=== PATIENT | male | born 1995 | race Caucasian/White ===

== ENCOUNTER 2022-01-11 15:07 | Inpatient (IN) | payer MEDICAID, SELFPAY ==
[2022-01-11 15:10] VITALS: BP 132/83; PULSE 86; RESP 16; TEMP 36.6; O2SAT 98; BMI 21.7
--- NOTE | 2022-01-11 15:22 | W.ED.GENADLT ---
HPI - General Adult General: Chief complaint: Psychiatric Symptoms Stated complaint: Psych Eval Time Seen by Provider: 01/11/22 15:07 History of Present Illness: HPI: [26]yo patient w/ hx of depression presenting for SI with worsening depression. No active plan currently. On arrival, the patient is AAOx3 and cooperative with my evaluation. No focal complaints of chest pain, shortness of breath, palpitations, N/V, focal GI/ complaints. Currently denies HI. No complaints of hallucinations. Onset: acute on chronic Duration: ongoing Location: home Severity: severe Associated symptoms: Deny chest pain, dyspnea, nausea, rash, palpitations or vomiting Review of Systems Const: Denies: fever(s) or chills Eyes: Denies: change in vision ENMT: Denies: mouth pain Card: Denies: chest pain or palpitations Resp: Denies: dyspnea or non-productive cough GI: Denies: abdominal pain, nausea, vomiting or diarrhea : Denies: dysuria Musc: Denies: extremity pain Skin/Breast: Denies: rash or new lesions Neuro: Denies: weakness in extremities Psych: Reports: depression and suicidal ideation Naman/Lymph: Denies: easy bruising PFSH ED PFSH: Medical History Depression Social History Smoking and tobacco status: never smoked Alcohol intake: never Substance/Drug Use: never Physical Exam Const: COMMON NORMALS: alert HENMT: COMMON NORMALS: atraumatic HEAD & SCALP: atraumatic MOUTH: moist mucous membranes not abnormal Eye: COMMON NORMALS: EOMs intact bilaterally and conjunctivae normal CONJUNCTIVA: Yes conjunctivae normal Neck/C-Spine: COMMON NORMALS: full ROM and supple Resp: COMMON NORMALS: normal respiratory effort and clear to auscultation bilaterally AUSCULTATION: clear to auscultation bilaterally Cardio: COMMON NORMALS: regular rate RATE: regular rate GI: COMMON NORMALS: Soft to palpation and non-tender PALPATION: Yes Soft to palpation Extremity: COMMON NORMALS: full ROM Neuro: SENSORIUM/ORIENTATION: Yes alert MOTOR EXAM: No Abnormal motor strength present and Other motor observations present (no focal motor deficits) Psych: COMMON NORMALS: speech normal SPEECH: Yes normal speech MOOD & AFFECT: Yes depressed mood Course Vital Signs: Vital signs: Vital Signs Temperature 97.9 F 01/11/22 15:10 Pulse Rate 86 01/11/22 15:10 Respiratory Rate 16 01/11/22 15:10 Blood Pressure 132/83 01/11/22 15:10 Pulse Oximetry 98 01/11/22 15:10 Oxygen Delivery Me thod 01/11/22 15:10 MDM - General Adult Medical Decision Making [26]yo patient w/ hx of depression presenting for SI with worsening depression. HDS, exam within normal limit Thoughts are linear and organized, and the patient has no AH/VH, or HI. Clinically the patient displays no overt toxidrome; they are well appearing, with low suspicion for toxic ingestion given history and exam. Symptoms unlikely 2/2 anemia, hypothyroidism, infection, or ICH. Workup: CBC, CMP, Lipase, salicylate/tylenol, serum ethanol, UDS Lab findings: wnl, +marijuana/amphetamine in the urine [4:30pm] On reassessment, labs and workup wnl. Patient is hemodynamically stable with no acute medical complaints. Case discussed with psychiatric provider Dr. Logan at [facility] psych inpatient with recommendation for admission Disposition: Psych Lab Data : 01/11/22 15:25 01/11/22 15:25 Laboratory Results WBC 8.9 10^3/uL (4.0-10.0) 01/11/22 15:25 RBC 4.80 10^6/uL (4.1-5.3) 01/11/22 15:25 Hgb 14.6 g/dL (11.7-16.6) 01/11/22 15:25 Hct 44.7 % (42.0-52.0) 01/11/22 15:25 MCV 93.1 fl (80-94) 01/11/22 15:25 MCH 30.4 pg (28.0-34.0) 01/11/22 15:25 MCHC 32.7 g/dL (30.0-36.0) 01/11/22 15:25 RDW 12.6 % (12.1-15.1) 01/11/22 15:25 Plt Count 440 10^3/cmm (130-400) H 01/11/22 15:25 MPV 9.1 fL (7.4-10.4) 01/11/22 15:25 Neut % (Auto) 58.4 % 01/11/22 15:25 Lymph % (Auto) 29.9 % 01/11/22 15:25 Beauregard % (Auto) 6.5 % 01/11/22 15:25 Eos % (Auto) 4.1 % 01/11/22 15:25 Baso % (Auto) 0.9 % 01/11/22 15:25 Neut # (Auto) 5.18 10^3/uL (1.8-7.7) 01/11/22 15:25 Lymph # (Auto) 2.7 10^3/uL (0.8-4.8) 01/11/22 15:25 Beauregard # (Auto) 0.6 10^3/uL (0.2-0.9) 01/11/22 15:25 Eos # (Auto) 0.4 10^3/uL (0.0-0.8) 01/11/22 15:25 Baso # (Auto) 0.1 10^3/uL (0.0-0.1) 01/11/22 15:25 Nucleated RBC % (auto) 0 % 01/11/22 15:25 Nucleated RBCs # 0.0 /100WBC 01/11/22 15:25 Sodium 139 mmol/L (136-145) 01/11/22 15:25 Potassium 4.2 mmol/L (3.5-5.1) 01/11/22 15:25 Chloride 100 mmol/L (98-107) 01/11/22 15:25 Carbon Dioxide 29 mmol/L (22-29) 01/11/22 15:25 Anion Gap 14.2 (5-19) 01/11/22 15:25 BUN 13 mg/dL (6-20) 01/11/22 15:25 Creatinine 0.8 mg/dL (0.7-1.2) 01/11/22 15:25 GFR Calculation 116.9 mL/min (90-130) 01/11/22 15:25 Glucose 108 mg/dL (65-115) 01/11/22 15:25 Calculated Osmolality 289 mOsm/kg (285-295) 01/11/22 15:25 Calcium 10.0 mg/dL (8.5-10.5) 01/11/22 15:25 Total Bilirubin 0.4 mg/dL (0.15-1.2) 01/11/22 15:25 AST 43 U/L (0-40) H 01/11/22 15:25 ALT 50 U/L (0-41) H 01/11/22 15:25 Alkaline Phosphatase 174 U/L (40-130) H 01/11/22 15:25 Total Protein 6.8 g/dL (6.6-8.7) 01/11/22 15:25 Albumin 4.3 g/dL (3.5-5.2) 01/11/22 15:25 Globulin 2.5 g/dL (1.3-4.6) 01/11/22 15:25 Lipase 29 U/L (13-60) 01/11/22 15:25 Salicylates < 0.3 mg/dL (3-10) L 01/11/22 15:25 Urine Opiates Screen Cancelled 01/11/22 15:43 Urine Opiates Screen Negative ng/mL (Negative) 01/11/22 15:43 Acetaminophen < 5.0 ug/mL (10-30) L 01/11/22 15:25 Ur Barbiturates Screen Cancelled 01/11/22 15:43 Ur Barbiturates Screen Negative ng/mL (Negative) 01/11/22 15:43 Ur Phencyclidine Scrn Cancelled 01/11/22 15:43 Ur Phencyclidine Scrn Negative ng/mL (Negative) 01/11/22 15:43 Ur Amphetamines Screen Cancelled 01/11/22 15:43 Ur Amphetamines Screen Positive ng/mL (Negative) H 01/11/22 15:43 U Benzodiazepines Scrn Cancelled 01/11/22 15:43 U Benzodiazepines Scrn Negative ng/mL (Negative) 01/11/22 15:43 Urine Cocaine Screen Cancelled 01/11/22 15:43 Urine Cocaine Screen Negative ng/mL (Negative) 01/11/22 15:43 U Marijuana (THC) Screen Cancelled 01/11/22 15:43 U Marijuana (THC) Screen Positive ng/mL (Negative) H 01/11/22 15:43 Discharge Plan Discharge Patient Disposition: Admitted As Inpatient Clinical Impression: Depression with suicidal ideation, Delusion Condition: Stable Coding Level of Care Code ED Assistant Professor Surgical Technology for Marina Fwd Exam Comprehensive
[2022-01-11 15:37] LABS: Basophils # 0.1 10^3/uL (0.0-0.1); Basophils % 0.9 %; Eosinophils # 0.4 10^3/uL (0.0-0.8); Eosinophils % 4.1 %; Hematocrit 44.7 % (42.0-52.0); Hemoglobin 14.6 g/dL (11.7-16.6); Lymphocytes # 2.7 10^3/uL (0.8-4.8); Lymphocytes % 29.9 %; Mean Corpuscular HGB Conc 32.7 g/dL (30.0-36.0); Mean Corpuscular Hemoglobin 30.4 pg (28.0-34.0); Mean Corpuscular Volume 93.1 fl (80-94); Mean Platelet Volume 9.1 fL (7.4-10.4); Monocytes # 0.6 10^3/uL (0.2-0.9); Monocytes % 6.5 %; Neutrophils # 5.18 10^3/uL (1.8-7.7); Neutrophils % 58.4 %; Nucleated Red Blood Cells % 0 %; Platelet Count 440 10^3/cmm (130-400); Red Cell Distribution Width 12.6 % (12.1-15.1); White Blood Count 8.9 10^3/uL (4.0-10.0)
[2022-01-11 15:54] LABS: Alanine Aminotransferase 50 U/L (0-41); Albumin Level 4.3 g/dL (3.5-5.2); Alkaline Phosphatase 174 U/L (40-130); Anion Gap 14.2 (5-19); Aspartate Amino Transferase 43 U/L (0-40); Blood Urea Nitrogen 13 mg/dL (6-20); Carbon Dioxide 29 mmol/L (22-29); Chloride 100 mmol/L (98-107); Globulin 2.5 g/dL (1.3-4.6); Glomerular Filtration Rate 116.9 mL/min (90-130); Glucose 108 mg/dL (65-115); Lipase 29 U/L (13-60); Osmolality Calculated 289 mOsm/kg (285-295); Potassium 4.2 mmol/L (3.5-5.1); Sodium 139 mmol/L (136-145); Total Bilirubin 0.4 mg/dL (0.15-1.2); Total Protein 6.8 g/dL (6.6-8.7)
[2022-01-11 16:01] LABS: Acetaminophen < 5.0 ug/mL (10-30); Salicylate < 0.3 mg/dL (3-10)
[2022-01-11 16:18] LABS: Amphetamines Screen Urine Positive (Negative); Barbiturates Screen Urine Negative (Negative); Benzodiazepines Screen Urine Negative (Negative); Cocaine Screen Urine Negative (Negative); Opiate Screen Urine Negative (Negative); PCP Screen Urine Negative (Negative); THC Screen Urine Positive (Negative)
[2022-01-11] MEDS: acetaminophen 500 mg Tablet PO (21:01)
[2022-01-11] MEDS: nicotine 21 mg Patch 1 PATCH TRANSDERMA (21:02)
[2022-01-11 21:03] VITALS: PULSE 80; RESP 16; O2SAT 97
[2022-01-11 21:18] VITALS: BP 154/97; PULSE 75; RESP 18; TEMP 36.4; O2SAT 100
[2022-01-11 22:15] VITALS: BP 154/97; PULSE 75; RESP 18; TEMP 36.4; O2SAT 100
[2022-01-11] MEDS: nicotine 2 mg Gum BUCCAL (22:42)
[2022-01-11] MEDS: trazodone 50 mg Tablet PO (22:42)
[2022-01-12 01:08] LABS: Alcohol Level < 10 mg/dL (0-10)
[2022-01-12 06:00] VITALS: BP 136/91; PULSE 86; RESP 18; TEMP 36.3; O2SAT 98
[2022-01-12] MEDS: nicotine 4 mg lozenge MUCOUS MEM ×2 (06:33→14:32)
[2022-01-12] MEDS: nicotine 21 mg Patch 1 PATCH TRANSDERMA (08:20)
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
[2022-01-12] MEDS: nicotine 2 mg Gum BUCCAL ×2 (13:25→16:01)
[2022-01-12] MEDS: cetylpyridinium Lozenge 1 EACH MUCOUS MEM (13:26)
[2022-01-12 14:00] VITALS: BP 129/77; PULSE 92; RESP 18; TEMP 36.6; O2SAT 98
[2022-01-12] MEDS: buPROPion XL (24 HR) 150 mg Tablet PO (14:32)
[2022-01-12] MEDS: trazodone 100 mg Tablet 50 MG PO (20:08)
[2022-01-12] MEDS: ibuprofen 600 mg Tablet PO (20:09)
[2022-01-12] MEDS: quetiapine 25 mg Tablet 50 MG PO (20:09)
[2022-01-12 20:34] VITALS: BP 122/72; PULSE 86; RESP 16; TEMP 36.8; O2SAT 98
[2022-01-13] MEDS: cetylpyridinium Lozenge 1 EACH MUCOUS MEM ×3 (04:25→15:41)
[2022-01-13 06:00] VITALS: BP 116/69; PULSE 73; RESP 18; TEMP 36.9; O2SAT 98
[2022-01-13] MEDS: nicotine 4 mg lozenge MUCOUS MEM ×2 (08:15→10:00)
[2022-01-13] MEDS: buPROPion XL (24 HR) 150 mg Tablet PO (08:16)
[2022-01-13 14:00] VITALS: BP 123/85; PULSE 96; RESP 20; TEMP 36.3; O2SAT 98
[2022-01-13] MEDS: nicotine 2 mg Gum BUCCAL (14:49)
--- NOTE | 2022-01-13 18:10 | W.PM.NPUPNS ---
Subjective NPU Subjective: Patient is 26-year-old white male admitted with depressed mood and methamphetamine abuse. Patient had also endorsed a past history of opiate dependence. He had continue to report depressed mood but stated that he had been feeling less anxious today. He had reported improved sleep. He had been able to attend groups and expressed desire to continue medications to manage his mood fluctuations. He reported no side effects from his medications. Mental Status Exam MSE Comments: He is a casually dressed white male who appeared his stated age. He appeared somewhat fidgety and had a oscar complexion. His speech was normal in regards to rate rhythm and prosody. There was increased psychomotor activity noted. There was no evidence of any abnormal tics or tremors appreciated. His mood was described as depressed. His affect was mood congruent and restricted in range. His thought process showed no evidence of active homicidal ideation, he denied suicidal ideation today. There was no evidence of any delusional thinking. He did not appear to be responding to internal stimuli at this time. His attention span was limited. His insight and judgment were both limited. His impulse control appeared poor. Vitals/I&O/Wt Last Vital Signs Temp 97.3 F L 01/13/22 14:00 Pulse 96 01/13/22 14:00 Resp 20 H 01/13/22 14:00 BP 123/85 01/13/22 14:00 Pulse Ox 98 01/13/22 14:00 O2 Del Method 01/13/22 06:00 Data NPU : 01/11/22 15:25 01/11/22 15:25 A&P Assessment and plan (1) Methamphetamine abuse: (2) Depression with suicidal ideation: (3) Opioid dependence: (4) Alcohol abuse: Plan Andrea is a 26-year-old white male with polysubstance abuse currently endorsing depressed mood and suicidal ideation with significant genetic loading for addiction mood disorders. He would likely benefit from dual diagnosis treatment long-term. 1.? [facility] protocol. 2.? Encourage individual, group and milieu therapy 3.? Continue q-15 minute check for safety 4.? Recommend sober living treatment at the highest level of care to which the patient is willing to commit. 5. Increase Seroquel to 75 mg at night and continue Wellbutrin XL 150 mg in the morning to target depression.. Involuntary Hold Information 96 Hour Hold: 96 Hour Involuntary Admission: No Attestations NPU Medical Necessity Statement*: Inpatient hospitalization is medically necessary and the clinically appropriate intervention at this time. We will monitor medications and make changes as indicated. Patient likely length of stay is three to five days. 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
[2022-01-13] MEDS: ibuprofen 600 mg Tablet PO (20:35)
[2022-01-13] MEDS: trazodone 100 mg Tablet 50 MG PO (20:35)
[2022-01-13] MEDS: quetiapine 25 mg Tablet 50 MG PO (20:36)
[2022-01-13] MEDS: quetiapine 25 mg Tablet 75 MG PO (21:05)
[2022-01-13 22:00] VITALS: BP 120/76; PULSE 82; RESP 15; TEMP 36.8; O2SAT 98
[2022-01-14 06:00] VITALS: BP 116/78; PULSE 76; RESP 16; TEMP 37; O2SAT 96
[2022-01-14] MEDS: nicotine 21 mg Patch 1 PATCH TRANSDERMA (08:35)
[2022-01-14] MEDS: buPROPion XL (24 HR) 150 mg Tablet PO (08:35)
--- NOTE | 2022-01-14 09:29 | PC.NURSE ---
Behavioral Assessment Patient sitting in bed. Patient bounced up really quick on bed when I began talking to him, almost as if he was excited. Patient denies AH/VH and SI/HI. Patient states he would like to find a way to stop self-medicating. Patient appears anxious and eyes dart occassionally. Patient is cooperative. No distress noted. [ End ]
[2022-01-14] MEDS: nicotine 4 mg lozenge MUCOUS MEM ×3 (12:11→19:16)
[2022-01-14 14:00] VITALS: BP 118/70; PULSE 96; RESP 18; TEMP 36.8; O2SAT 98
[2022-01-14] MEDS: nicotine 2 mg Gum BUCCAL (14:07)
[2022-01-14] MEDS: cetylpyridinium Lozenge 1 EACH MUCOUS MEM (18:17)
--- NOTE | 2022-01-14 19:12 | W.PM.NPUPNS ---
Subjective NPU Subjective: Patient is 26-year-old white male admitted with depressed mood and methamphetamine abuse. He reported improved sleep. He reports improved motivation to manage mood instability. He had reported no side effects from his Seroquel or Wellbutrin. He had reported that he was struggling with opiate dependence as well had reported some withdrawal symptoms including increased anxiety since his last use of opiates. The patient was unable to describe any triggers associated with his opiate use or methamphetamine use. Patient had reported some ongoing legal issues associated with his substance abuse. He had been cooperative and compliant on the milieu engaging in group therapy. Mental Status Exam MSE Comments: He is a casually dressed white male who appeared his stated age. He appeared in no acute distress. His speech was normal in regards to rate rhythm and prosody. There was no evidence of any abnormal tics or tremors appreciated. His mood was described as okay.. His affect was mood incongruent and remained restricted. His thought process showed no evidence of active homicidal ideation, he denied suicidal ideation today. There was no evidence of any delusional thinking. He did not appear to be responding to internal stimuli at this time. His attention span was limited. His insight and judgment were both limited. His impulse control appeared poor. Vitals/I&O/Wt Last Vital Signs Temp 98.2 F 01/14/22 14:00 Pulse 96 01/14/22 14:00 Resp 18 01/14/22 14:00 BP 118/70 01/14/22 14:00 Pulse Ox 98 01/14/22 14:00 O2 Del Method 01/14/22 06:00 Data NPU : 01/11/22 15:25 01/11/22 15:25 A&P Assessment and plan (1) Depression with suicidal ideation: (2) Methamphetamine abuse: (3) Opioid dependence: (4) Alcohol abuse: Plan Andrea is a 26-year-old white male with polysubstance abuse currently endorsing depressed mood and suicidal ideation with significant genetic loading for addiction mood disorders. He would likely benefit from dual diagnosis treatment long-term. 1.? [facility] protocol. 2.? Encourage individual, group and milieu therapy 3.? Continue q-15 minute check for safety 4.? Recommend sober living treatment at the highest level of care to which the patient is willing to commit. 5. Increase Seroquel to 100 mg at night and continue Wellbutrin XL 150 mg in the morning to target depression. Involuntary Hold Information 96 Hour Hold: 96 Hour Involuntary Admission: No Attestations NPU Medical Necessity Statement*: Inpatient hospitalization is medically necessary and the clinically appropriate intervention at this time. We will monitor medications and make changes as indicated. The patient's likely length of stay is three to five days. Coding Level of Care Code Established Pt Acute Airline Hostess for Marina Rodrigues Patient Type Established History Problem Focused Exam Problem Focused Medical Decision Making Straight Forward Diagnoses Depression with suicidal ideation F32.A; R45.851 Methamphetamine abuse F15.10 Opioid dependence F11.20 Alcohol abuse F10.10
[2022-01-14] MEDS: quetiapine 25 mg Tablet 75 MG PO (19:31)
[2022-01-14] MEDS: trazodone 100 mg Tablet 50 MG PO (19:31)
[2022-01-14 20:00] VITALS: BP 125/85; PULSE 83; RESP 16; TEMP 36.9; O2SAT 90
[2022-01-14] MEDS: acetaminophen 325 mg Tablet 650 MG PO (20:23)
[2022-01-15 06:00] VITALS: BP 115/67; PULSE 83; RESP 16; TEMP 36.6; O2SAT 99
[2022-01-15] MEDS: buPROPion XL (24 HR) 150 mg Tablet PO (08:51)
[2022-01-15] MEDS: nicotine 4 mg lozenge MUCOUS MEM ×4 (08:51→21:09)
[2022-01-15] MEDS: nicotine 21 mg Patch 1 PATCH TRANSDERMA (09:55)
[2022-01-15 14:00] VITALS: BP 115/71; PULSE 97; RESP 20; TEMP 36.6; O2SAT 98
--- NOTE | 2022-01-15 14:35 | PC.NURSE ---
Pt removed nicotine patch at 1435.
--- NOTE | 2022-01-15 19:49 | P.NPUPN_ITS ---
Subjective NPU Subjective: Patient is 26-year-old white male admitted with depressed mood and methamphetamine abuse. Patient continued to report depressed mood and stated that he had some difficulties falling asleep last night with the presence of nightmares. He had reported feeling more optimistic about the future. He has been able to engage in milieu and group therapy on the unit. He reported no side effects from his medications. He reported some cravings for opiates. He reported being unable to determine triggers for methamphetamine use. He reports some increased stress over the last 3 months and reported an extended history of mood swings and self-destructive behavior. Mental Status Exam MSE Comments: He is a casually dressed white male who appeared his stated age. He appeared in no acute distress. His speech was normal in regards to rate rhythm and prosody. There was no evidence of any abnormal tics or tremors appreciated. His mood was described as depressed. His affect was mood congruent and remained restricted. His thought process showed no evidence of active homicidal ideation, he denied suicidal ideation today. There was no evidence of any delusional thinking. He did not appear to be responding to internal stimuli at this time. His attention span was limited. His insight and judgment were both limited. His impulse control appeared poor. Vitals/I&O/Wt Last Vital Signs Temp 98 F 01/15/22 14:00 Pulse 97 01/15/22 14:00 Resp 20 H 01/15/22 14:00 BP 115/71 01/15/22 14:00 Pulse Ox 98 01/15/22 14:00 O2 Del Method 01/15/22 06:00 Data NPU : 01/11/22 15:25 01/11/22 15:25 A&P Assessment and plan (1) Depression with suicidal ideation: (2) Methamphetamine abuse: (3) Opioid dependence: (4) Alcohol abuse: Plan Andrea is a 26-year-old white male with polysubstance abuse currently endorsing depressed mood and suicidal ideation with significant genetic loading for addiction mood disorders. He would likely benefit from dual diagnosis treatment long-term. 1.? [facility] protocol. 2.? Encourage individual, group and milieu therapy 3.? Continue q-15 minute check for safety 4.? Recommend sober living treatment at the highest level of care to which the patient is willing to commit. 5. Increase Seroquel to 100 mg at night and increase Wellbutrin XL to 300 mg in the morning to target depression. Involuntary Hold Information 96 Hour Hold: 96 Hour Involuntary Admission: No Attestations NPU Medical Necessity Statement*: Inpatient hospitalization is medically necessary and the clinically appropriate intervention at this time. We will monitor medications and make changes as indicated. The patient's likely length of stay i s three to five days. 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
[2022-01-15] MEDS: quetiapine 100 mg Tablet PO (20:37)
[2022-01-15 21:14] VITALS: BP 117/69; PULSE 90; RESP 15; TEMP 36.4; O2SAT 98
[2022-01-16 06:00] VITALS: BP 107/69; PULSE 79; RESP 17; TEMP 36.4; O2SAT 98
[2022-01-16] MEDS: buPROPion XL (24 HR) 300 mg Tablet PO (08:05)
[2022-01-16] MEDS: nicotine 4 mg lozenge MUCOUS MEM ×5 (08:05→19:06)
[2022-01-16] MEDS: cetylpyridinium Lozenge 1 EACH MUCOUS MEM (09:07)
[2022-01-16] MEDS: atomoxetine 40 mg Capsule PO (13:11)
[2022-01-16 14:00] VITALS: BP 117/70; PULSE 107; RESP 18; TEMP 36.9; O2SAT 97
--- NOTE | 2022-01-16 14:16 | P.NPUPN_ITS ---
Subjective NPU Subjective: Patient is 26-year-old white male admitted with depressed mood ,alcohol and methamphetamine abuse. He endorses a history of inattention hyperactivity difficulty sitting still along with continued mood fluctuations. He reported some improvement in his mood on the Wellbutrin. He reported no f eelings of hopelessness or worthlessness. Patient reported difficulties with sleep continuity disruption but states he had been sleeping better with the Seroquel. Patient reports that he has been engaging in groups and milieu therapy here. He reported no cravings or withdrawal symptoms. Mental Status Exam MSE Comments: He is a casually dressed white male who appeared his stated age. He appeared in no acute distress. His speech was normal in regards to rate rhythm and prosody. There was no evidence of any abnormal tics or tremors appreciated. His mood was described as a little better. His affect was mood congruent and less restricted in range. His thought process showed no evidence of active homicidal ideation, he denied suicidal ideation today. There was no evidence of any delusional thinking. He did not appear to be responding to internal stimuli at this time. His attention span was poor. His insight and judgment were both limited. His impulse control appeared poor. Vitals/I&O/Wt Last Vital Signs Temp 97.6 F 01/16/22 06:00 Pulse 79 01/16/22 06:00 Resp 17 01/16/22 06:00 BP 107/69 01/16/22 06:00 Pulse Ox 98 01/16/22 06:00 O2 Del Method 01/16/22 06:00 Weight last 48 hrs Weight 69.626 kg Data NPU : 01/11/22 15:25 01/11/22 15:25 A&P Assessment and plan (1) Depression with suicidal ideation: (2) Methamphetamine abuse: (3) Opioid dependence: (4) Alcohol abuse: Plan Andrea is a 26-year-old white male with polysubstance abuse currently endorsing depressed mood and suicidal ideation with significant genetic loading for addiction mood disorders. He would likely benefit from dual diagnosis treatment long-term. 1.? [facility] protocol. 2.? Encourage individual, group and milieu therapy 3.? Continue q-15 minute check for safety 4.? Recommend sober living treatment at the highest level of care to which the patient is willing to commit. 5. Continue Seroquel at 100 mg at night and continue Wellbutrin XL to 300 mg in the morning to target depression. Add Strattera to target ADHD symptoms at 40mg daily. Involuntary Hold Information 96 Hour Hold: 96 Hour Involuntary Admission: No Attestations NPU Medical Necessity Statement*: Inpatient hospitalization is medically necessary and the clinically appropriate intervention at this time. We will monitor medications and make changes as indicated. The patient's likely length of stay is three to five days. Coding Level of Care Code Established Pt Acute Repossession Agent for Chg Fwd Patient Type Established History Problem Focused Exam Problem Focused Medical Decision Making Straight Forward Diagnoses Depression with suicidal ideation F32.A; R45.851 Methamphetamine abuse F15.10 Opioid dependence F11.20 Alcohol abuse F10.10
[2022-01-16] MEDS: quetiapine 100 mg Tablet PO (19:29)
[2022-01-16] MEDS: trazodone 100 mg Tablet 50 MG PO (19:29)
[2022-01-16 21:38] VITALS: BP 125/68; PULSE 106; RESP 16; TEMP 36.8; O2SAT 94
[2022-01-17 06:00] VITALS: BP 109/67; PULSE 82; RESP 16; TEMP 36.9; O2SAT 98
[2022-01-17] MEDS: OLANZapine 5 mg ODT PO (08:12)
[2022-01-17] MEDS: atomoxetine 40 mg Capsule PO (08:12)
[2022-01-17] MEDS: buPROPion XL (24 HR) 300 mg Tablet PO (08:12)
[2022-01-17] MEDS: nicotine 21 mg Patch 1 PATCH TRANSDERMA (08:13)
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
[2022-01-17 13:51] VITALS: BP 109/67; PULSE 82; RESP 16; TEMP 36.9; O2SAT 98
[2022-01-17 14:00] VITALS: BP 123/81; PULSE 90; RESP 90; O2SAT 96
[2022-01-17] MEDS: nicotine 4 mg lozenge MUCOUS MEM (14:20)
== END 2022-01-17 16:42 | disposition home or self-care (01) | DRG 881 ==
LOC: ER 15:48 → NP 21:04
PROVIDERS: Admitting Provider Psychiatry & Neurology Psychiatry; Emergency Provider Emergency Medicine; Visit Provider Psychiatry & Neurology Psychiatry
DX: F32.A Depression, unspecified (principal); R45.851 Suicidal ideations; F11.20 Opioid dependence, uncomplicated; F15.10 Other stimulant abuse, uncomplicated; F90.9 Attention-deficit hyperactivity disorder, unspecified type; F10.10 Alcohol abuse, uncomplicated; Y90.0 Blood alcohol level of less than 20 mg/100 ml; G47.9 Sleep disorder, unspecified; Z62.810 Personal history of physical and sexual abuse in childhood; Z81.3 Family history of other psychoactive substance abuse and dependence; Z59.00 Homelessness unspecified; Z65.3 Problems related to other legal circumstances
CPT/HCPCS: 80053; 80306; 80307; 83690; 85025; 97150; 97165

== ENCOUNTER 2022-01-25 04:47 | Emergency (ER) | payer MEDICAID, SELFPAY ==
--- NOTE | 2022-01-25 04:49 | W.ED.PSYCHS ---
HPI - Psych General: Chief Complaint: Psychiatric Symptoms Stated Complaint: MHE Time Seen by Provider: 01/25/22 04:49 History of Present Illness: Mr. Mixon is a 26-year-old gentleman with history of depressive disorder and polysubstance abuse who presents to the emergency department due to depression in the context of being out of his medications for 2 days. He does report worsening depression though previously endorsed thoughts of self-harm are actually more just concerned regarding worsening thoughts of reckless behavior as opposed to actually injuring himself or others. Denies hallucinations. Denies injuries. Denies new medical concerns. Onset (ago): day(s) History of same: Yes Context: not taking psychiatric medications Associated symptoms: Reports depression; Deny homicidal ideation or suicidal ideation Review of Systems General: Reports: 10 or more systems reviewed and unremarkable except in HPI and below Psych: Reports: depression; Denies: suicidal ideation or homicidal ideation [facility] ED PFSH: Medical History Depression Social History Smoking and tobacco status: never smoked Alcohol intake: never Substance/Drug Use: current Substance/Drug use type: Marijuana Physical Exam Const: COMMON NORMALS: alert GENERAL APPEARANCE: cooperative and well developed HENMT: COMMON NORMALS: normocephalic and atraumatic HEAD & SCALP: normocephalic and atraumatic THROAT: posterior oropharynx normal Eye: COMMON NORMALS: conjunctivae normal CONJUNCTIVA: Yes conjunctivae normal SCLERA: sclerae normal Neck/C-Spine: COMMON NORMALS: supple GENERAL: Yes trachea midline Resp: COMMON NORMALS: clear to auscultation bilaterally EFFORT & INSPECTION: Yes able to speak in complete sentences AUSCULTATION: clear to auscultation bilaterally Cardio: COMMON NORMALS: regular rate and regular rhythm RATE: regular rate RHYTHM: regular rhythm GI: COMMON NORMALS: Soft to palpation PALPATION: Yes Soft to palpation and No Tenderness to palpation present (GI) Extremity: GENERAL: Yes normal exam except as noted and No edema Neuro: COMMON NORMALS: moves all extremities SENSORIUM/ORIENTATION: Yes alert and No Orientation impaired Psych: COMMON NORMALS: mental status grossly normal, Normal thought process present, denies hallucinations, denies homicidal ideation and denies suicidal ideation THOUGHT PROCESS: Normal thought process present Course Vital Signs: Vital signs: Vital Signs Temperature 97.8 F 01/25/22 04:50 Pulse Rate 90 01/25/22 05:41 Respiratory Rate 17 01/25/22 05:41 Blood Pressure 133/81 01/25/22 04:50 Pulse Oximetry 97 01/25/22 05:41 Oxygen Delivery Me thod 01/25/22 04:50 MDM - Psych Medical Decision Making 26-year-old male presenting with worsening symptoms of psychiatric disorder in the context of not taking medication. Denies suicidal or homicidal ideation. Thoughts of self-harm are more related to reckless behavior/returning to drug use and he has no plan to harm himself. Plan to reprint prescriptions which the patient reports ability to fill. Satisfactory for outpatient management with return precautions given. Patient comfortable with plan for outpatient management. Medical Records I reviewed the patient's medical records. Lab Data I reviewed the patient's lab results. Discharge Plan Discharge Patient Disposition: Home Clinical Impression: Depression, Encounter for medication refill Condition: Stable Prescriptions: Continued quetiapine 100 mg Tablet 100 mg PO BEDTIME 30 Days Qty: 30 1RF atomoxetine 40 mg Capsule 40 mg PO DAILY 30 Days Qty: 30 1RF Rx Instructions: with food bupropion HCl 300 mg Tablet Extended Release 24 Hr 300 mg PO DAILY 30 Days Qty: 30 1RF Discharge Orders: Discharge ED (Routine); Ordered 01/25/22 Ordered By: Norbert Funez Discharge Diet: Usual diet Discharge Activity: Increase activity as tolerated Patient Instructions: Depression (ED) Activity Restrictions/Additional Instructions: Thank you for visiting the emergency department. You were seen and evaluated for depression in the context of being out of medication. I will refill your medication. Please continue all previous discharge instructions. Return to the emergency department for worsening symptoms, thoughts of harming yourself or others, or anything else that you are concerned about a feel needs emergency department evaluation. Coding Level of Care Code ED Dermatologist Managing Partner for Marina Rodrigues
[2022-01-25 04:50] VITALS: BP 133/81; PULSE 87; RESP 18; TEMP 36.6; O2SAT 97; BMI 25.0
[2022-01-25 05:41] VITALS: PULSE 90; RESP 17; O2SAT 97
== END 2022-01-25 05:43 | disposition home or self-care (01) ==
PROVIDERS: Emergency Provider Emergency Medicine
DX: F32.A Depression, unspecified (principal); Z76.0 Encounter for issue of repeat prescription
CPT/HCPCS: 99283

== ENCOUNTER 2022-01-25 12:35 | Emergency (ER) | payer MEDICAID, SELFPAY ==
[2022-01-25 12:51] VITALS: BMI 25.0
--- NOTE | 2022-01-25 13:09 | PC.PHAR ---
atomoxetine 40mg daily-bupropion xl 300mg daily and quetiapine 100mg hs filled 01/17/22 30d/s-pt states not had meds in 2 days states he left the medication in his mothers car and she lives in [place]
--- NOTE | 2022-01-25 13:20 | W.ED.GENADLT ---
HPI - General Adult General: Chief complaint: Psychiatric Symptoms Stated complaint: Psych Eval Time Seen by Provider: 01/25/22 13:19 History of Present Illness: HPI: [26]yo patient w/ hx of depression presenting for SI with plan. Patient tells me that he was feeling depressed and is currently homeless. Patient says that he is due to go to skilled nursing next week. Patient would like to get help and reports a plan to hang himself. On arrival, the patient is AAOx3 and cooperative with my evaluation. No focal complaints of chest pain, shortness of breath, palpitations, N/V, focal GI/ complaints. Currently denies HI. No complaints of hallucinations. Onset: acute Duration: ongoing Location: home Severity: severe Associated symptoms: Deny chest pain, dyspnea, nausea, rash, palpitations or vomiting Review of Systems Const: Denies: fever(s) or chills Eyes: Denies: change in vision ENMT: Denies: mouth pain Card: Denies: chest pain or palpitations Resp: Denies: dyspnea or non-productive cough GI: Denies: abdominal pain, nausea, vomiting or diarrhea : Denies: dysuria Musc: Denies: extremity pain Skin/Breast: Denies: rash or new lesions Neuro: Denies: weakness in extremities Psych: Reports: depression and suicidal ideation Naman/Lymph: Denies: easy bruising PFSH ED PFSH: Medical History Depression Social History Smoking and tobacco status: never smoked Alcohol intake: never Substance/Drug Use: current Substance/Drug use type: Marijuana Physical Exam Const: COMMON NORMALS: alert HENMT: COMMON NORMALS: atraumatic HEAD & SCALP: atraumatic MOUTH: moist mucous membranes not abnormal Eye: COMMON NORMALS: EOMs intact bilaterally and conjunctivae normal CONJUNCTIVA: Yes conjunctivae normal Neck/C-Spine: COMMON NORMALS: full ROM and supple Resp: COMMON NORMALS: normal respiratory effort and clear to auscultation bilaterally AUSCULTATION: clear to auscultation bilaterally Cardio: COMMON NORMALS: regular rate RATE: regular rate GI: COMMON NORMALS: Soft to palpation and non-tender PALPATION: Yes Soft to palpation Extremity: COMMON NORMALS: full ROM Neuro: SENSORIUM/ORIENTATION: Yes alert MOTOR EXAM: No Abnormal motor strength present and Other motor observations present (no focal motor deficits) Psych: COMMON NORMALS: speech normal SPEECH: Yes normal speech MOOD & AFFECT: Yes depressed mood Course Vital Signs: Vital signs: Vital Signs Pulse Rate 80 01/26/22 02:32 Respiratory Rate 16 01/26/22 02:32 Blood Pressure 126/89 01/26/22 02:32 Pulse Oximetry 99 01/26/22 02:32 MDM - General Adult Medical Decision Making [26]yo patient w/ hx of depression presenting for SI with plan. HDS, exam within normal limit Thoughts are linear and organized, and the patient has no AH/VH, or HI. Clinically the patient displays no overt toxidrome; they are well appearing, with low suspicion for toxic ingestion given history and exam. Symptoms unlikely 2/2 anemia, hypothyroidism, infection, or ICH. Workup: CBC, CMP, Lipase, salicylate/tylenol, TSH/free T4, EKG, covid antigen, serum ethanol, UDS Lab findings: wnl, +marijuana in the urine [300pm] On reassessment, labs and workup wnl. Patient is hemodynamically stable with no acute medical complaints. Case discussed with psychiatric provider Dr. Connelly at [facility] psych inpatient with recommendation for admission. We do not have any beds. Patient will be transferred to other psych facility for stabilization. Disposition: Xfer to psych facility Lab Data : 01/25/22 13:15 01/25/22 13:15 Radiology Impressions Chest X-Ray 01/25/22 13:54 IMPRESSION: No acute findings. Laboratory Results WBC 10.7 10^3/uL (4.0-10.0) H 01/25/22 13:15 RBC 5.18 10^6/uL (4.1-5.3) 01/25/22 13:15 Hgb 15.8 g/dL (11.7-16.6) 01/25/22 13:15 Hct 47.5 % (42.0-52.0) 01/25/22 13:15 MCV 91.7 fl (80-94) 01/25/22 13:15 MCH 30.5 pg (28.0-34.0) 01/25/22 13:15 MCHC 33.3 g/dL (30.0-36.0) 01/25/22 13:15 RDW 12.5 % (12.1-15.1) 01/25/22 13:15 Plt Count 410 10^3/cmm (130-400) H 01/25/22 13:15 MPV 8.9 fL (7.4-10.4) 01/25/22 13:15 Neut % (Auto) 65.4 % 01/25/22 13:15 Lymph % (Auto) 22.9 % 01/25/22 13:15 [place] % (Auto) 5.9 % 01/25/22 13:15 Eos % (Auto) 4.0 % 01/25/22 13:15 Baso % (Auto) 1.4 % 01/25/22 13:15 Neut # (Auto) 7.03 10^3/uL (1.8-7.7) 01/25/22 13:15 Lymph # (Auto) 2.5 10^3/uL (0.8-4.8) 01/25/22 13:15 [place] # (Auto) 0.6 10^3/uL (0.2-0.9) 01/25/22 13:15 Eos # (Auto) 0.4 10^3/uL (0.0-0.8) 01/25/22 13:15 Baso # (Auto) 0.2 10^3/uL (0.0-0.1) H 01/25/22 13:15 Nucleated RBC % (auto) 0 % 01/25/22 13:15 Nucleated RBCs # 0.0 /100WBC 01/25/22 13:15 Sodium 138 mmol/L (136-145) 01/25/22 13:15 Potassium 4.2 mmol/L (3.5-5.1) 01/25/22 13:15 Chloride 100 mmol/L (98-107) 01/25/22 13:15 Carbon Dioxide 27 mmol/L (22-29) 01/25/22 13:15 Anion Gap 15.2 (5-19) 01/25/22 13:15 BUN 17 mg/dL (6-20) 01/25/22 13:15 Creatinine 0.7 mg/dL (0.7-1.2) 01/25/22 13:15 GFR Calculation 136.3 mL/min (90-130) H 01/25/22 13:15 Glucose 96 mg/dL (65-115) 01/25/22 13:15 Calculated Osmolality 287 mOsm/kg (285-295) 01/25/22 13:15 Calcium 9.5 mg/dL (8.5-10.5) 01/25/22 13:15 Total Bilirubin 0.7 mg/dL (0.15-1.2) 01/25/22 13:15 AST 31 U/L (0-40) 01/25/22 13:15 ALT 54 U/L (0-41) H 01/25/22 13:15 Alkaline Phosphatase 203 U/L (40-130) H 01/25/22 13:15 Total Protein 7.7 g/dL (6.6-8.7) 01/25/22 13:15 Albumin 4.6 g/dL (3.5-5.2) 01/25/22 13:15 Globulin 3.1 g/dL (1.3-4.6) 01/25/22 13:15 TSH 0.78 uIU/mL (0.27-4.20) 01/25/22 13:15 Free T4 1.12 ng/dL (0.82-1.77) 01/25/22 13:15 Urine Color Yellow (Yellow) 01/25/22 13:15 Urine Appearance Clear (CLEAR) 01/25/22 13:15 Urine pH 5 (5-7) 01/25/22 13:15 Ur Specific [place] 1.020 (1.005-1.030) 01/25/22 13:15 Urine Protein Neg (Negative) 01/25/22 13:15 Urine Glucose (UA) Norm (Normal) 01/25/22 13:15 Urine Ketones Negative (Negative) 01/25/22 13:15 Urine Blood Neg (Negative) 01/25/22 13:15 Urine Nitrate Negative (Negative) 01/25/22 13:15 Urine Bilirubin Neg (Negative) 01/25/22 13:15 Urine Urobilinogen Norm mg/dL (Negative) 01/25/22 13:15 Ur Leukocyte Esterase Negative (Negative) 01/25/22 13:15 Salicylates < 0.3 mg/dL (3-10) L 01/25/22 13:15 Urine Opiates Screen Negative ng/mL (Negative) 01/25/22 13:15 Acetaminophen < 5.0 ug/mL (10-30) L 01/25/22 13:15 Ur Barbiturates Screen Negative ng/mL (Negative) 01/25/22 13:15 Ur Phencyclidine Scrn Negative ng/mL (Negative) 01/25/22 13:15 Ur Amphetamines Screen Negative ng/mL (Negative) 01/25/22 13:15 U Benzodiazepines Scrn Negative ng/mL (Negative) 01/25/22 13:15 Urine Cocaine Screen Negative ng/mL (Negative) 01/25/22 13:15 U Marijuana (THC) Screen Positive ng/mL (Negative) H 01/25/22 13:15 Ethyl Alcohol < 10 mg/dL (0-10) 01/25/22 13:15 Coronavirus 229E (PCR) Not detected (NOT DETECT) 01/25/22 Unknown SARS-CoV-2 (PCR) Not detected (NOT DETECT) 01/25/22 Unknown Discharge Plan Discharge Patient Disposition: Transfer to ED Clinical Impression: Depression with suicidal ideation Condition: Stable Prescriptions: No Action quetiapine 100 mg Tablet 100 mg PO BEDTIME 30 Days Qty: 30 1RF atomoxetine 40 mg Capsule 40 mg PO DAILY 30 Days Qty: 30 1RF Rx Instructions: with food bupropion HCl 300 mg Tablet Extended Release 24 Hr 300 mg PO DAILY 30 Days Qty: 30 1RF Coding Level of Care Code ED [place] Joiner for Marina Fwd Exam Comprehensive
[2022-01-25 13:25] LABS: Add Urine Microscopic? NO; Charge for UA Resulting for Rev
[2022-01-25 13:26] LABS: Basophils # 0.2 10^3/uL (0.0-0.1); Basophils % 1.4 %; Eosinophils # 0.4 10^3/uL (0.0-0.8); Hematocrit 47.5 % (42.0-52.0); Hemoglobin 15.8 g/dL (11.7-16.6); Lymphocytes # 2.5 10^3/uL (0.8-4.8); Lymphocytes % 22.9 %; Mean Corpuscular HGB Conc 33.3 g/dL (30.0-36.0); Mean Corpuscular Hemoglobin 30.5 pg (28.0-34.0); Mean Corpuscular Volume 91.7 fl (80-94); Mean Platelet Volume 8.9 fL (7.4-10.4); Monocytes # 0.6 10^3/uL (0.2-0.9); Monocytes % 5.9 %; Neutrophils # 7.03 10^3/uL (1.8-7.7); Neutrophils % 65.4 %; Nucleated Red Blood Cells % 0 %; Platelet Count 410 10^3/cmm (130-400); Red Blood Count 5.18 10^6/uL (4.1-5.3); Red Cell Distribution Width 12.5 % (12.1-15.1); White Blood Count 10.7 10^3/uL (4.0-10.0)
[2022-01-25 13:30] LABS: Bilirubin Urine Neg (Negative); Blood Urine Neg (Negative); Glucose Urine UA Norm (Normal); Ketones Urine Negative (Negative); Leukocyte Esterase Urine Negative (Negative); Nitrate Urine Negative (Negative); Protein Urine Neg (Negative); Urine Appearance Clear (CLEAR); Urine Color Yellow (Yellow); Urobilinogen Urine Norm (Negative); pH Urine 5 (5-7)
[2022-01-25 13:39] LABS: Amphetamines Screen Urine Negative (Negative); Barbiturates Screen Urine Negative (Negative); Benzodiazepines Screen Urine Negative (Negative); Cocaine Screen Urine Negative (Negative); Opiate Screen Urine Negative (Negative); PCP Screen Urine Negative (Negative); THC Screen Urine Positive (Negative)
--- NOTE | 2022-01-25 13:54 | XRR_ITS ---
PROCEDURE INFORMATION: Exam: XR Chest Exam date and time: 01/25/2022 2:10 PM Age: 26 years old Clinical indication: Screening exam; Other screening; Additional info: Psych clearance TECHNIQUE: Imaging protocol: Radiologic exam of the chest. Views: 1 view. COMPARISON: No relevant prior studies available. FINDINGS: Lungs: Unremarkable. No consolidation. Pleural spaces: Unremarkable. No pleural effusion. No pneumothorax. Heart/Mediastinum: Unremarkable. No cardiomegaly. Bones/joints: Unremarkable. XR/XR chest 1V portable [id number] IMPRESSION: No acute findings.
--- NOTE | 2022-01-25 13:54 | ECG_ITS ---
[facility] Test Date: 2022-01-25 Pat Name: Andrea Mixon Department: Room: Gender: Male Correspondence Transcriber: : 1995 Requested By: Heraclio Pickens Order Number: [id number] Cathryn MD: Ernie Singh M.D. Measurements Intervals [place] Rate: 73 P: 51 RI: 139 QRS: 60 QRSD: 86 T: 60 QT: 383 QTc: 423 Interpretive Statements SINUS RHYTHM WITH SINUS ARRHYTHMIA INTERPRETATION BASED ON A DEFAULT AGE OF 40 YEARS No previous ECG available for comparison Electronically Signed On 01-26-2022 8:25:59 CDT by Ernie Singh M.D. [id number]
[2022-01-25 14:02] LABS: Alanine Aminotransferase 54 U/L (0-41); Albumin Level 4.6 g/dL (3.5-5.2); Alkaline Phosphatase 203 U/L (40-130); Anion Gap 15.2 (5-19); Aspartate Amino Transferase 31 U/L (0-40); Blood Urea Nitrogen 17 mg/dL (6-20); Calcium 9.5 mg/dL (8.5-10.5); Carbon Dioxide 27 mmol/L (22-29); Chloride 100 mmol/L (98-107); Creatinine Clr Calc Pharmacy 150.1968; Globulin 3.1 g/dL (1.3-4.6); Glomerular Filtration Rate 136.3 mL/min (90-130); Glucose 96 mg/dL (65-115); Osmolality Calculated 287 mOsm/kg (285-295); Potassium 4.2 mmol/L (3.5-5.1); Sodium 138 mmol/L (136-145); Total Bilirubin 0.7 mg/dL (0.15-1.2); Total Protein 7.7 g/dL (6.6-8.7)
[2022-01-25 14:03] LABS: Acetaminophen < 5.0 ug/mL (10-30); Alcohol Level < 10 mg/dL (0-10); Salicylate < 0.3 mg/dL (3-10)
[2022-01-25 14:28] LABS: Free T4 Free Thyroxine 1.12 ng/dL (0.82-1.77); Thyroid Stimulating Hormone 0.78 uIU/mL (0.27-4.20)
[2022-01-25 16:11] LABS: Adenovirus Not Detected (NOT DETECT); Chlamydia Pneumoniae Not Detected (NOT DETECT); Coronavirus 229E,HKU1,NL63,OC4 Not Detected (NOT DETECT); Human Metapneumovirus Not Detected (NOT DETECT); Human Rhinovirus/Enterovirus Not Detected (NOT DETECT); Influenza A Not Detected (NOT DETECT); Influenza A H1 Not Detected (NOT DETECT); Influenza A H1-2009 Not Detected (NOT DETECT); Influenza A H3 Not Detected (NOT DETECT); Influenza B Not Detected (NOT DETECT); Mycoplasma Pneumoniae Not Detected (NOT DETECT); Parainfluenza Virus Type 1 Not Detected (NOT DETECT); Parainfluenza Virus Type 2 Not Detected (NOT DETECT); Parainfluenza Virus Type 3 Not Detected (NOT DETECT); Parainfluenza Virus Type 4 Not Detected (NOT DETECT); Respiratory Syncytial Virus A Not Detected (NOT DETECT); Respiratory Syncytial Virus B Not Detected (NOT DETECT); SARS-COV-2 Not Detected (NOT DETECT)
[2022-01-26 02:32] VITALS: BP 126/89; PULSE 80; RESP 16; O2SAT 99
== END 2022-01-26 02:34 ==
PROVIDERS: Physician Assistant; Emergency Provider Emergency Medicine
DX: R45.851 Suicidal ideations (principal); F32.A Depression, unspecified; Z20.822 Contact with and (suspected) exposure to COVID-19
CPT/HCPCS: 71045; 80053; 80306; 80307; 81003; 84439; 84443; 85025; 87635; 93005; 99285

== ENCOUNTER → 2022-11-21 10:50 | Outpatient (BNVA) | payer MEDICAID, SELFPAY | PROVIDERS: Visit Provider Nurse Practitioner Family | DX: B19.20 Unspecified viral hepatitis C without hepatic coma (principal) | CPT/HCPCS: 80053; 86705; 86706; 86709; 86803; 87340; 87522; 87902 ==

== ENCOUNTER → 2025-02-27 14:58 | Outpatient (BNVA) | payer MEDICAID, SELFPAY | PROVIDERS: Visit Provider Nurse Practitioner Psychiatric/Mental Health | DX: Z79.899 Other long term (current) drug therapy (principal) | CPT/HCPCS: 80053; 80061; 83036 ==

== ENCOUNTER 2025-03-27 14:26 | Emergency (ER) | payer MEDICAID, SELFPAY ==
[2025-03-27 14:39] VITALS: BP 117/63; PULSE 102; RESP 16; TEMP 36.8; O2SAT 98; BMI 32.3
[2025-03-27] MEDS: LORazepam 2 mg/mL INJ 1 mL IM (15:00)
[2025-03-27 15:08] VITALS: BP 115/62; PULSE 120; RESP 18; O2SAT 97
--- NOTE | 2025-03-27 15:16 | ED_ITS ---
HPI - Medical Clearance General: Chief complaint: Medical Clearance Stated complaint: meth use - [facility] Time Seen by Provider: 03/27/25 14:37 Source: patient and EMS Mode of arrival: EMS Limitations: no limitations History of Present Illness: 29-year-old male sent here from [facility] patient was admitted there today for rehab. He does admit to using meth this morning patient is not suicidal or homicidal. He is answer my questions appropriately has some slight anxiety. Related Data Previous Rx's ?Medication ?Instructions ?Recorded benzoyl peroxide 9.8 % topical foam 1 applic topical B ID #[id number] grams 11/21/22 citalopram 40 mg tablet 40 mg PO .morning #30 tabs 1 04/29/24 quetiapine 100 mg tablet (Seroquel) 100 mg PO BEDTIME #30 tabs 02/27/25 Allergies Allergy/AdvReac Type Severity Reaction Status Date / Time No Known Allergies Allergy Verified 02/27/25 13:38 [facility] ED PFSH: Medical History (Updated 03/27/25 @ 14:46 by Neisha New MD) Polydrug dependence including opioid type drug with episodic abuse with complication Nicotine dependence due to vaping tobacco product Nicotine dependence, cigarettes, uncomplicated Chronic post-traumatic stress disorder Methamphetamine dependence, episodic Cannabis dependence, uncomplicated Major depressive disorder, recurrent severe without psychotic features Psychiatric care Social History (Updated 02/28/25 @ 10:28 by Viki Vazquez, [facility]) Smoking and tobacco/nicotine status: current every day tobacco/nicotine user cigarettes [ Other cigarette details: one pack every two days, and vaping ] Alcohol intake: former Substance/Drug Use: current Other substance/drug use details: admits marijuana, methamphetamine use; history of opiate use IV Adopted: No Household members: family Do you think of yourself as: Straight/Heterosexual Current gender identity: Male Physical Exam Const: COMMON NORMALS: no acute distress, patient oriented x3 and healthy appearing HENMT: COMMON NORMALS: normocephalic and atraumatic HEAD & SCALP: normocephalic and atraumatic Eye: COMMON NORMALS: Equal, round and reactive pupils present and EOMs intact bilaterally PUPIL: Yes Equal, round and reactive pupils present Neck/C-Spine: COMMON NORMALS: full ROM and supple Chest: COMMONS NORMALS: normal inspection of the chest and normal palpation of entire chest wall Resp: COMMON NORMALS: normal respiratory effort, No retractions, No use of accessory muscles and clear to auscultation bilaterally AUSCULTATION: clear to auscultation bilaterally Cardio: COMMON NORMALS: regular rate, regular rhythm and No murmurs present (Cardio) RATE: regular rate RHYTHM: regular rhythm GI: COMMON NORMALS: Normal to inspection, nondistended, normoactive bowel sounds present, Soft to palpation, non-tender and no masses PALPATION: Yes Soft to palpation Extremity: COMMON NORMALS: normal to inspection and full ROM Neuro: COMMON NORMALS: patient oriented x3, moves all extremities and no focal motor deficits Psych: COMMON NORMALS: mental status grossly normal, Normal thought process present and cooperative THOUGHT PROCESS: Normal thought process present Skin: COMMON NORMALS: no rashes or lesions noted and no wounds GENERAL SKIN EXAM: no rashes or lesions noted Course Vital Signs: Vital signs: Vital Signs Temperature 98.3 F 03/27/25 14:39 Pulse Rate 120 H 03/27/25 15:08 Respiratory Rate 18 03/27/25 15:08 Blood Pressure 115/62 03/27/25 15:08 Pulse Oximetry 97 03/27/25 15:08 Oxygen Delivery Me thod Room Air 03/27/25 14:39 MDM - Medical Clearance Medical Decision Making Patient presents here with recent methamphetamine use patient is not psychotic here he is medically cleared stable for discharge back to [facility]. Medical Records I reviewed the patient's medical records. No radiology studies performed this visit Discharge Plan Discharge Patient Disposition: Home Clinical Impression: Methamphetamine abuse Condition: Stable Prescriptions: No Action citalopram 40 mg tablet 40 mg PO .morning Qty: 30 6RF Rx Instructions: Take one tablet every morning quetiapine [Seroquel] 100 mg tablet 100 mg PO BEDTIME Qty: 30 3RF Rx Instructions: Take one tablet at bedtime benzoyl peroxide 9.8 % foam 1 applic topical BID Qty: 113 2RF Discharge Orders: Discharge ED (Routine); Ordered 03/27/25 Ordered By: Neisha New Discharge Diet: Advance as tolerated Discharge Activity: Resume usual activity Patient Instructions: Methamphetamine Abuse Print Language: Bulgarian Coding Level of Care Code ED Guide Foreign Tour for Marina Rodrigues
== END 2025-03-27 15:12 | disposition home or self-care (01) ==
PROVIDERS: Emergency Provider Emergency Medicine
DX: F15.10 Other stimulant abuse, uncomplicated (principal); F17.210 Nicotine dependence, cigarettes, uncomplicated
CPT/HCPCS: 96372; 99284; J2060